=== PATIENT | male | born 1970 | race African-American/Black ===

== ENCOUNTER 2024-10-06 11:04 | Emergency (ER) | payer OTHER, SELFPAY ==
[2024-10-06 11:30] VITALS: BP 174/103; PULSE 71; RESP 20; TEMP 36.9; O2SAT 98
--- NOTE | 2024-10-06 11:51 | ED_ITS ---
HPI - Extremity Injury (Upper) General Chief Complaint: Extremity Injury, Upper Stated Complaint: left should/elbow irritation Time Seen by Provider: 10/06/24 11:33 Source: patient, family () and RN notes reviewed Mode of arrival: ambulatory Limitations: no limitations History of Present Illness HPI narrative: Patient presents today complaining of left elbow swelling x1 week without injury. He is also complaining of pain to left neck area radiating to shoulder for 1-2 weeks. States the neck is more painful with some range of motion. Pain does not increase with movement of the shoulder. Denies any known injury, but may have woken up with the pain. Denies numbness or tingling in the arm or hand. No [id number] treatment prior to arrival. Related Data Home Medications ?Medication ?Instructions ?Recorded ?Confirmed ?Last Taken ?Type amlodipine 10 mg tablet mg 10/06/24 Unknown History carvedilol 25 mg tablet mg 10/06/24 Unknown History ergocalciferol (vitamin D2) 1,250 10/06/24 Unknown History mcg (50,000 unit) capsule ferrous sulfate 324 mg (65 mg mg PO 10/06/24 Unknown History iron) tablet,delayed release hydralazine 100 mg tablet mg 10/06/24 Unknown History isosorbide dinitrate 40 mg tablet mg 10/06/24 Unknown History losartan 100 mg tablet mg 10/06/24 Unknown History terazosin 5 mg capsule mg 10/06/24 Unknown History Allergies Allergy/AdvReac Type Severity Reaction Status Date / Time No Known Allergies Allergy Verified 10/06/24 12:00 Review of Systems Review of Systems: CONSTITUTIONAL: Denies body aches, fever, chills, or sweats. EYES: Denies visual changes, redness, or discharge. ENT: Denies rhinorrhea, congestion, sore throat, or otalgia. CARDIOVASCULAR: Denies chest pain, palpitations, or edema. RESPIRATORY: Denies cough or dyspnea. GASTROINTESTINAL: Denies abdominal pain, nausea, vomiting, or diarrhea. GENITOURINARY: Denies dysuria or hematuria. SKIN: Denies rash, itching, or wounds. MUSCULOSKELETAL: + left neck, shoulder pain, left elbow swelling NEUROLOGIC: Denies headache, numbness, tingling, or weakness. PSYCH: Denies depression or anxiety. FOR[facility]LY [facility], [facility] Past Medical History Medical History (Updated 10/06/24 @ 11:59 by Astrid Payne, [facility], ) Hypertension Myocardial infarction Ruptured aneurysm of intracranial artery Comments At time of signature, I have reviewed and agree with nursing past medical, surgical, social and family history unless otherwise noted. Please see nursing chart for further information. There is no relevant family history pertinent to the presenting complaint Exam Narrative: GENERAL: Well-appearing, well-nourished, and in no acute distress. HEAD: Normocephalic, atraumatic. EYES: EOMI. No redness or drainage. Conjunctivae normal. ENT: Mucous membranes pink and moist. NECK: Normal AROM. Supple. No lymphadenopathy. Mildly tender to the left neck extending to the upper trapezius/lateral shoulder. Pain increases with chin to chest, rotation of head to the right, and right ear to right shoulder. CHEST: No respiratory distress. EXTREMITIES: Tenderness to lateral shoulder area. Full range of motion of the shoulder without increased pain. Left elbow has moderate-sized home olecranon bursitis. No tenderness, erythema, induration. Skin is intact. Full range of motion of the elbow without increased pain. Distal sensation intact. Capillary refill normal. Radial pulse normal. SKIN: Warm, dry, no rash. Capillary refill normal. Normal skin turgor. NEURO: No focal deficits. Alert and oriented x3. Gait steady. PSYCH: Normal affect. No signs of depression or anxiety. Course Course Level of Care: Express Care Visit Vital Signs Vital signs: Vital Signs Temperature 98.5 F 10/06/24 11:30 Pulse Rate 71 10/06/24 11:30 Respiratory Rate 20 10/06/24 11:30 Blood Pressure 174/103 H 10/06/24 11:30 Pulse Oximetry 98 10/06/24 11:30 Oxygen Delivery Room Air 10/06/24 11:30 Temperature 98.5 F 10/06/24 11:30 Pulse Rate 71 10/06/24 11:30 Respiratory Rate 20 10/06/24 11:30 Blood Pressure 174/103 H 10/06/24 11:30 Pulse Oximetry 98 10/06/24 11:30 Oxygen Delivery Room Air 10/06/24 11:30 Reviewed MDM - Extremity Injury (Upper) MDM Narrative Medical decision making narrative: Patient has been diagnosed with left olecranon bursitis without evidence of infection present. Discussed care instructions and protection of the elbow until the bursitis resolves. Patient should not take NSAIDs due to his multiple hypertension medications. He will follow-up with orthopedics in 1-2 weeks the bursitis is not resolved. Will start him on a 5 mg cyclobenzaprine to see if this will help with his spasms of the left neck and upper trapezius area. Discussed PCP or Cardiology follow-up if blood pressure continues to be elevated. Strict ED precautions given. Differential Diagnosis Differential diagnosis: Likely other (olecranon bursitis, septic bursitis, trapezius strain, acquired torticollis) Critical Care Time Critical Care Time Critical Care Time: No Discharge Plan Discharge Clinical Impression: Olecranon bursitis of left elbow Strain of left trapezius muscle Qualifiers: Encounter type: initial encounter Qualified Code(s): S46.812A - Strain of other muscles, fascia and tendons at shoulder and upper arm level, left arm, initial encounter Patient Disposition: Home, Self-Care Condition: Stable Instructions: Muscle Strain (DC), Elbow Bursitis (ED) Additional Instructions: Your elbow swelling should resolve on its own. Please protect the swollen area so you don't injure it more. Follow up with orthopedics in 1-2 weeks if the swelling does not resolve. Please take the Flexeril at night to help relax your neck and shoulder muscles. Use a heating pad as well. Take Tylenol for pain if needed. Follow-up with your PCP in 1 week if symptoms persist. Your blood pressure was elevated above 120/80 today at Urgent Care. This puts you above the threshold for follow up. Please schedule a followup visit with your personal physician as soon as possible, for further evaluation and treatment. Even blood pressure exceeding 120/80 may indicate pre-hypertension. Patient Language: [place] Prescriptions: New cyclobenzaprine 5 mg tablet 5 mg PO HS PRN (Reason: muscle spasm) Qty: 15 0RF No Action terazosin 5 mg capsule carvedilol 25 mg tablet amlodipine 10 mg tablet hydralazine 100 mg tablet isosorbide dinitrate 40 mg tablet ergocalciferol (vitamin D2) 1,250 mcg (50,000 unit) capsule ferrous sulfate 324 mg (65 mg iron) tablet,delayed release (DR/EC) PO losartan 100 mg tablet Follow-up/Referrals: Nathan Greenwood MD [Physician] - PHYSICIAN,COMMUNICATIONS CLERK [Primary Care Provider] - Time of Disposition: 12:00
== END 2024-10-06 12:10 | disposition home or self-care (01) ==
PROVIDERS: Emergency Provider Nurse Practitioner
DX: M70.22 Olecranon bursitis, left elbow (principal); S46.812A Strain of other muscles, fascia and tendons at shoulder and upper arm level, left arm, initial encounter; X58.XXXA Exposure to other specified factors, initial encounter; I10 Essential (primary) hypertension; I25.2 Old myocardial infarction
CPT/HCPCS: 99213; G0463